=== PATIENT | female | born 2000 | race Caucasian/White ===

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

== ENCOUNTER 2021-02-24 00:34 | Outpatient (CLI) | payer BC, OTHER ==
[~2021-02-24 00:34] MED LIST: CEFUROXIME250 MG PO; CEFUROXIME500 MG PO; COLACE 100MG C100 MG PO; FLEXERIL 10 MG10 MG PO; IBUPROFEN600 MG PO; NORCO 5-325 TA1 EACH PO; PRENATAL TABLE1 EAC1 PO
== END 2021-02-24 02:17 | disposition home or self-care (01) ==
LOC: GENOP 00:34
DX: O62.9 Abnormality of forces of labor, unspecified (principal); O42.913 Preterm premature rupture of membranes, unspecified as to length of time between rupture and onset of labor, third trimester; O26.853 Spotting complicating pregnancy, third trimester; Z3A.36 36 weeks gestation of pregnancy
CPT/HCPCS: 83518; G0463

== ENCOUNTER 2021-03-09 16:55 | Inpatient (IN) | payer BC, OTHER ==
[~2021-03-09] VITALS: Ht 154.9 cm; Wt 108.9 kg
[2021-03-09 17:58] LABS: HEMOGLOBIN 11.4 gm/dl (12.3-15.3); RED BLOOD COUNT 4.39 M/UL (4.00-5.10); WHITE BLOOD COUNT 13.9 K/UL (4.5-11.0)
[2021-03-10] MEDS ORDERED: DOCUSATE SODIU250 MG PO (06:01)
[2021-03-10] MEDS ORDERED: IBUPROFEN600 MG PO (06:01)
[2021-03-11 05:50] LABS: HEMOGLOBIN 10.1 gm/dl (12.3-15.3)
== END 2021-03-11 14:46 | disposition home or self-care (01) | DRG 805 ==
LOC: GENOP 16:55 → OB 17:13
PROVIDERS: Obstetrics & Gynecology; ADMIT Obstetrics & Gynecology
PROC: 10E0XZZ Delivery of Products of Conception, External Approach (ICD-10-PCS; principal; 2021-03-09)
DX: O26.613 Liver and biliary tract disorders in pregnancy, third trimester (principal); K83.1 Obstruction of bile duct; Z37.0 Single live birth; K76.89 Other specified diseases of liver; O13.3 Gestational [pregnancy-induced] hypertension without significant proteinuria, third trimester; Z3A.38 38 weeks gestation of pregnancy; Z20.822 Contact with and (suspected) exposure to COVID-19
CPT/HCPCS: 36415; 51702; 81001; 82800; 85014; 85018; 85025; 90715; 96372; J2590; J2795; J7030; J7120; U0002